=== PATIENT | male | born 1965 | race African-American/Black ===

== ENCOUNTER 2017-11-21 12:02 | Emergency (ER) | payer MEDICAID ==
[~2017-11-21] VITALS: Ht 180.3 cm; Wt 110.0 kg
[~2017-11-21 12:02] MED LIST: AMOXICILLIN/CLAVULAN; BENAZEPRIL; FEXO-61; FLUTICASONE SPRAY; METOPROLOL; TRAM50TA
[2017-11-21] MEDS ORDERED: KETOROLAC 60MG/2ML VIAL IM STA (12:15)
[2017-11-21 12:40] LABS: BASOPHILS % 1.1 % (0.0-2.0); EOSINOPHILS % 4.6 % (0.0-5.0); HEMOGLOBIN. 13.3 g/dL (14.0-18.0); LYMPHOCYTES % 32.3 % (20.0-50.0); MEAN CORPUSCULAR VOLUME 83.2 fL (80.0-94.0); MEAN PLATELET VOLUME 9.8 fl (7.4-10.4); MONOCYTES % 9.9 % (2.0-8.0); NEUTROPHILS % 52.1 % (40.0-76.0); PLATELET 173 x1000/uL (130-400); RED BLOOD CELL COUNT 4.93 mill/uL (4.7-6.1); RED CELL DISTRIBUTION WIDTH 14.5 % (11.6-14.6)
[2017-11-21 12:45] LABS: CHLORIDE 112 mEq/L (98-107)
[2017-11-21 12:54] LABS: CREATINE KINASE 378 IU/L (39-308)
[2017-11-21 13:53] LABS: CLARITY URINE CLEAR (CLEAR); COLOR URINE YELLOW (YELLOW); KETONES URINE NEGATIVE (NEGATIVE); LEUKOCYTE ESTERASE URINE NEGATIVE (NEGATIVE); NITRITE URINE NEGATIVE (NEGATIVE); OCCULT BLOOD URINE NEGATIVE (NEGATIVE); PH URINE 6.5 (4.5-8.0); PROTEIN URINE NEGATIVE (NEGATIVE); SPECIFIC GRAVITY URINE 1.019 (1.005-1.030)
[2017-11-21] MEDS ORDERED: ACETAMINOPHEN WITH CODEINE 300/30MG TABLET PO ONE (14:15)
[2017-11-21] MEDS ORDERED: METHOCARBAMOL 500MG TABLET PO ONE (14:15)
[2017-11-21 16:36] VITALS: BP 126/85
== END 2017-11-21 16:38 | disposition home or self-care (01) ==
LOC: ER 12:21
DX: M54.40 Lumbago with sciatica, unspecified side (principal); M54.16 Radiculopathy, lumbar region; K21.9 Gastro-esophageal reflux disease without esophagitis; I10 Essential (primary) hypertension
CPT/HCPCS: 36415; 72100; 80053; 81003; 82550; 85025; 96372; 99285; J1885

== ENCOUNTER 2017-12-14 12:46 | Emergency (ER) | payer MEDICAID ==
[~2017-12-14] VITALS: Ht 180.3 cm; Wt 110.0 kg
[2017-12-14 13:30] LABS: BASOPHILS % 1.3 % (0.0-2.0); EOSINOPHILS % 4.7 % (0.0-5.0); HEMATOCRIT. 38.3 % (42.0-52.0); HEMOGLOBIN. 12.7 g/dL (14.0-18.0); LYMPHOCYTES % 34.4 % (20.0-50.0); MEAN CORPUSCULAR HEMOGLOBIN 27.6 pg (28.0-32.0); MEAN CORPUSCULAR VOLUME 82.9 fL (80.0-94.0); MEAN PLATELET VOLUME 9.9 fl (7.4-10.4); MONOCYTES % 10.8 % (2.0-8.0); NEUTROPHILS % 48.8 % (40.0-76.0); PLATELET 180 x1000/uL (130-400); RED BLOOD CELL COUNT 4.62 mill/uL (4.7-6.1); RED CELL DISTRIBUTION WIDTH 14.4 % (11.6-14.6)
[2017-12-14 13:37] LABS: INR 1.1; PROTHROMBIN TIME 11.4 sec (9.4-11.6)
[2017-12-14 13:38] LABS: CHLORIDE 110 mEq/L (98-107)
[2017-12-14 14:01] LABS: CLARITY URINE CLEAR (CLEAR); COLOR URINE YELLOW (YELLOW); KETONES URINE TRACE (NEGATIVE); LEUKOCYTE ESTERASE URINE NEGATIVE (NEGATIVE); NITRITE URINE NEGATIVE (NEGATIVE); OCCULT BLOOD URINE NEGATIVE (NEGATIVE); PH URINE 5.5 (4.5-8.0); PROTEIN URINE NEGATIVE (NEGATIVE)
[2017-12-14 18:35] LABS: *BARBITURATES SCREEN URINE NEGATIVE (NEGATIVE); *BENZODIAZEPINES SCREEN URINE NEGATIVE (NEGATIVE); *COCAINE SCREEN URINE NEGATIVE (NEGATIVE)
[2017-12-14 18:36] LABS: CANNABINOID URINE SCREEN NEGATIVE (NEGATIVE); METHADONE URINE SCREEN NEGATIVE (NEGATIVE); OPIATES URINE SCREEN PRESUMTIVE POSITIVE (NEGATIVE); PHENCYCLIDINE URINE SCREEN NEGATIVE (NEGATIVE)
[2017-12-14 18:38] LABS: *AMPHETAMINES SCREEN URINE NEGATIVE (NEGATIVE)
[2017-12-14 21:44] VITALS: BP 124/56
== END 2017-12-14 21:46 | disposition home or self-care (01) ==
LOC: ER 13:20
DX: R16.0 Hepatomegaly, not elsewhere classified (principal); E87.8 Other disorders of electrolyte and fluid balance, not elsewhere classified; D72.821 Monocytosis (symptomatic); E86.0 Dehydration; E83.51 Hypocalcemia; D50.9 Iron deficiency anemia, unspecified; E78.5 Hyperlipidemia, unspecified; R82.4 Acetonuria; M54.42 Lumbago with sciatica, left side; M54.41 Lumbago with sciatica, right side; K21.9 Gastro-esophageal reflux disease without esophagitis; I10 Essential (primary) hypertension; Z98.890 Other specified postprocedural states
CPT/HCPCS: 36415; 76705; 80053; 80305; 81003; 83036; 83690; 85025; 85610; 99285

== ENCOUNTER 2021-07-01 15:10 | Inpatient (IN) | payer MEDICAID ==
[~2021-07-01] VITALS: Ht 180.3 cm; Wt 102.7 kg
[2021-07-01] MEDS ORDERED: MECLIZINE 25MG TABLET PO ONE (15:45)
[2021-07-01 15:53] LABS: BASOPHILS % 0.8 % (0.0-2.0); HEMATOCRIT. 42.3 % (42.0-52.0); HEMOGLOBIN. 13.5 g/dL (14.0-18.0); LYMPHOCYTES % 18.2 % (20.0-50.0); MEAN CORPUSCULAR HEMOGLOBIN 26.9 pg (28.0-32.0); MEAN CORPUSCULAR VOLUME 84.5 fL (80.0-94.0); MEAN PLATELET VOLUME 10.2 fl (7.4-10.4); MONOCYTES % 11.1 % (2.0-8.0); NEUTROPHILS % 66.9 % (40.0-76.0); PLATELET 151 x1000/uL (130-400); RED CELL DISTRIBUTION WIDTH 14.5 % (11.6-14.6)
[2021-07-01 15:55] LABS: CHLORIDE 108 mEq/L (98-107)
[2021-07-01] MEDS ORDERED: ASPIRIN 325MG EC TABLET PO ONE (17:45)
[2021-07-01 23:00] VITALS: BP 170/103
[2021-07-02] MEDS ORDERED: CLONIDINE 0.1MG TABLET PO PRN (00:15)
[2021-07-02] MEDS ORDERED: LORAZEPAM 0.5MG TABLET PO PRN (00:15)
[2021-07-02] MEDS ORDERED: IPRATROPIUM/ALBUTEROL 0.5-3(2.5)MG/3ML NEB NEB PRN (00:15)
[2021-07-02] MEDS ORDERED: GUAIFENESIN 200MG/10ML SUGAR FREE UDC PO PRN (00:15)
[2021-07-02] MEDS ORDERED: MAGNESIUM/ALUMINUM HYDROXIDE/SIMETHICONE 30ML UDC PO PRN (00:15)
[2021-07-02] MEDS ORDERED: HYDROCODONE/ACETAMINOPHEN 5/325MG TABLET PO PRN (00:15)
[2021-07-02] MEDS ORDERED: DOCUSATE SODIUM 100MG CAPSULE PO PRN (00:15)
[2021-07-02] MEDS ORDERED: ACETAMINOPHEN 325MG TABLET PO PRN (00:15)
[2021-07-02] MEDS ORDERED: ONDANSETRON HCL 4MG/2ML INJ IV PRN (00:15)
[2021-07-02] MEDS ORDERED: NALOXONE HCL 0.4MG/ML VIAL IV PRN (00:30)
[2021-07-02] MEDS ORDERED: BENA40TA9 PO (00:50)
[2021-07-02] MEDS ORDERED: OMEP20CA14 PO (00:50)
[2021-07-02] MEDS ORDERED: TAMS-11 PO (00:50)
[2021-07-02] MEDS ORDERED: METO-385 PO (00:50)
[2021-07-02] MEDS ORDERED: ASPI-1406 PO (00:58)
[2021-07-02] MEDS ORDERED: METOPROLOL SUCCINATE 50MG ER TABLET PO SCH (01:00)
[2021-07-02] MEDS ORDERED: METO-539 PO (01:03)
[2021-07-02] MEDS ORDERED: METOPROLOL TARTRATE 50MG TABLET PO SCH (01:30)
[2021-07-02 04:00] VITALS: BP 115/85
[2021-07-02 07:05] LABS: HEMATOCRIT. 39.5 % (42.0-52.0); HEMOGLOBIN. 13.2 g/dL (14.0-18.0); MEAN CORPUSCULAR HEMOGLOBIN 28.5 pg (28.0-32.0); MEAN CORPUSCULAR VOLUME 85.2 fL (80.0-94.0); MEAN PLATELET VOLUME 10.8 fl (7.4-10.4); PLATELET 139 x1000/uL (130-400); RED BLOOD CELL COUNT 4.64 mill/uL (4.7-6.1); RED CELL DISTRIBUTION WIDTH 14.2 % (11.6-14.6)
[2021-07-02] MEDS ORDERED: OMEPRAZOLE 20MG CAPSULE EXTENDED RELEASE PO SCH (07:10)
[2021-07-02 07:14] LABS: CHLORIDE 111 mEq/L (98-107)
[2021-07-02 07:23] LABS: LDL CHOLESTEROL 62 mg/dL (5-100)
[2021-07-02 07:25] LABS: CREATINE KINASE 230 IU/L (39-308); HDL CHOLESTEROL 46 mg/dL (40-59)
[2021-07-02 07:27] LABS: CREATINE KINASE MB FRACTION 3.5 ng/mL (0.5-3.6)
[2021-07-02 08:00] VITALS: BP 165/101
[2021-07-02] MEDS ORDERED: ENOXAPARIN 30MG/0.3ML SYR SUBCUT SCH (09:00)
[2021-07-02] MEDS ORDERED: TAMSULOSIN HCL 0.4MG SR CAPSULE PO SCH (09:00)
[2021-07-02] MEDS ORDERED: ASPIRIN 81MG EC TABLET PO SCH ×2 (09:00→13:30)
[2021-07-02 12:00] VITALS: BP 132/86
[2021-07-02] MEDS ORDERED: BENAZEPRIL 10MG TABLET PO SCH (13:30)
[2021-07-02 15:56] LABS: CLARITY URINE CLEAR (CLEAR); COLOR URINE YELLOW (YELLOW); KETONES URINE NEGATIVE (NEGATIVE); LEUKOCYTE ESTERASE URINE NEGATIVE (NEGATIVE); NITRITE URINE NEGATIVE (NEGATIVE); OCCULT BLOOD URINE NEGATIVE (NEGATIVE); PH URINE 5.5 (4.5-8.0); PROTEIN URINE NEGATIVE (NEGATIVE); SPECIFIC GRAVITY URINE 1.016 (1.005-1.030)
[2021-07-02 16:00] VITALS: BP 147/99
[2021-07-02] MEDS ORDERED: MECL-159 MT (16:12)
[2021-07-02 16:19] LABS: *AMPHETAMINES SCREEN URINE NEGATIVE (NEGATIVE); *BARBITURATES SCREEN URINE NEGATIVE (NEGATIVE); *BENZODIAZEPINES SCREEN URINE NEGATIVE (NEGATIVE); *COCAINE SCREEN URINE NEGATIVE (NEGATIVE); OPIATES URINE SCREEN NEGATIVE (NEGATIVE)
[2021-07-02 16:20] LABS: CANNABINOID URINE SCREEN NEGATIVE (NEGATIVE); PHENCYCLIDINE URINE SCREEN NEGATIVE (NEGATIVE)
[2021-07-02 16:21] LABS: METHADONE URINE SCREEN NEGATIVE (NEGATIVE)
[2021-07-02 16:41] LABS: PLATELET ESTIMATE NORMAL
[2021-07-02 16:58] VITALS: BP 147/97
[2021-07-02 17:00] LABS: CREATINE KINASE 216 IU/L (39-308)
[2021-07-02 17:02] LABS: CREATINE KINASE MB FRACTION 3.4 ng/mL (0.5-3.6)
== END 2021-07-02 18:40 | disposition home or self-care (01) | DRG 111 ==
LOC: ER 15:10 → ENRESERV 21:59 → 8WST 23:02
PROVIDERS: ADMIT Internal Medicine; ATTEND Internal Medicine
DX: H81.10 Benign paroxysmal vertigo, unspecified ear (principal); I69.351 Hemiplegia and hemiparesis following cerebral infarction affecting right dominant side; D64.9 Anemia, unspecified; K21.9 Gastro-esophageal reflux disease without esophagitis; E78.5 Hyperlipidemia, unspecified; I10 Essential (primary) hypertension; J98.11 Atelectasis; Z20.822 Contact with and (suspected) exposure to COVID-19; D72.821 Monocytosis (symptomatic); Z97.0 Presence of artificial eye
CPT/HCPCS: 36415; 70551; 71045; 80048; 80053; 80061; 80305; 81003; 82550; 82553; 83880; 84443; 84484; 85025; 87426; 93005; 93306; 97162; 99285; J1650; J8597

== ENCOUNTER 2022-04-17 22:13 | Inpatient (IN) | payer MEDICAID ==
[~2022-04-17] VITALS: Ht 182.9 cm; Wt 99.8 kg
[~2022-04-17 22:13] MED LIST changes: -AMOXICILLIN/CLAVULAN; +ASPI-1406 PO; +ATOR40TA70 MT; +BENA40TA91 PO; -BENAZEPRIL; -FEXO-61; -FLUTICASONE SPRAY; +MECL-159 MT; +METO-539 PO; -METOPROLOL; +OMEP20CA14 PO; +TAMS-11 PO; -TRAM50TA
[2022-04-17 22:30] VITALS: BP 136/90
[2022-04-18] MEDS ORDERED: ACETAMINOPHEN 650MG/20.3ML UDC PO PRN (00:15)
[2022-04-18] MEDS ORDERED: ONDANSETRON HCL 4MG/2ML INJ IV PRN (00:15)
[2022-04-18] MEDS ORDERED: ACETAMINOPHEN 325MG TABLET PO PRN (00:45)
[2022-04-18 06:20] LABS: BASOPHILS % 0.9 % (0.0-2.0); EOSINOPHILS % 7.3 % (0.0-5.0); HEMATOCRIT. 39.6 % (42.0-52.0); HEMOGLOBIN. 12.9 g/dL (14.0-18.0); LYMPHOCYTES % 23.7 % (20.0-50.0); MEAN CORPUSCULAR HEMOGLOBIN 27.9 pg (28.0-32.0); MEAN CORPUSCULAR VOLUME 85.6 fL (80.0-94.0); MEAN PLATELET VOLUME 10.9 fl (7.4-10.4); MONOCYTES % 14.5 % (2.0-8.0); NEUTROPHILS % 53.6 % (40.0-76.0); PLATELET 163 x1000/uL (130-400); RED BLOOD CELL COUNT 4.63 mill/uL (4.7-6.1); RED CELL DISTRIBUTION WIDTH 14.2 % (11.6-14.6)
[2022-04-18] MEDS: HYDRALAZINE HCL 50MG TABLET PO SCH ×3 (06:54→21:57)
[2022-04-18] MEDS: ENOXAPARIN 30MG/0.3ML SYR SUBCUT SCH ×2 (06:55→17:16)
[2022-04-18 07:25] LABS: CHLORIDE 107 mEq/L (98-107)
[2022-04-18 08:00] VITALS: BP 128/88
[2022-04-18] MEDS: BUTALBITAL/ACETAMINOPHEN/CAFFEINE 50/325/40MG TABLET PO PRN ×2 (08:47→15:14)
[2022-04-18] MEDS: FAMOTIDINE 20MG TABLET PO SCH ×2 (08:48→21:57)
[2022-04-18] MEDS: CLOPIDOGREL 75MG TABLET PO SCH (08:48)
[2022-04-18] MEDS: ASPIRIN 81MG EC TABLET PO SCH (08:48)
[2022-04-18] MEDS: ISOSORBIDE MONONITRATE 30MG TABLET SR 24HR PO SCH (08:49)
[2022-04-18 20:00] VITALS: BP 122/78
[2022-04-18] MEDS: ATORVASTATIN CALCIUM 40MG TABLET PO SCH (21:56)
[2022-04-18] MEDS: TAMSULOSIN HCL 0.4MG SR CAPSULE PO SCH (21:57)
[2022-04-19] MEDS: ENOXAPARIN 30MG/0.3ML SYR SUBCUT SCH ×2 (05:30→17:47)
[2022-04-19] MEDS: HYDRALAZINE HCL 50MG TABLET PO SCH ×3 (05:31→22:07)
[2022-04-19 08:00] VITALS: BP 135/93
[2022-04-19] MEDS: ASPIRIN 81MG EC TABLET PO SCH (08:13)
[2022-04-19] MEDS: CLOPIDOGREL 75MG TABLET PO SCH (08:13)
[2022-04-19] MEDS: FAMOTIDINE 20MG TABLET PO SCH ×2 (08:13→19:59)
[2022-04-19] MEDS: ISOSORBIDE MONONITRATE 30MG TABLET SR 24HR PO SCH (08:14)
[2022-04-19] MEDS: ACETAMINOPHEN 325MG TABLET PO PRN (08:16)
[2022-04-19] MEDS ORDERED: NALOXONE HCL 0.4MG/ML VIAL IV PRN (12:30)
[2022-04-19] MEDS: HYDROCODONE/ACETAMINOPHEN 5/325MG TABLET PO PRN ×2 (13:02→20:01)
[2022-04-19] MEDS: TAMSULOSIN HCL 0.4MG SR CAPSULE PO SCH (19:59)
[2022-04-19] MEDS: ATORVASTATIN CALCIUM 40MG TABLET PO SCH (19:59)
[2022-04-19 20:00] VITALS: BP 117/74
[2022-04-20] MEDS: ENOXAPARIN 30MG/0.3ML SYR SUBCUT SCH ×2 (06:00→17:26)
[2022-04-20] MEDS: HYDRALAZINE HCL 50MG TABLET PO SCH ×3 (06:01→21:57)
[2022-04-20 08:00] VITALS: BP 149/98
[2022-04-20] MEDS: ISOSORBIDE MONONITRATE 30MG TABLET SR 24HR PO SCH (08:22)
[2022-04-20] MEDS: HYDROCODONE/ACETAMINOPHEN 5/325MG TABLET PO PRN ×2 (08:23→16:26)
[2022-04-20] MEDS: ASPIRIN 81MG EC TABLET PO SCH (08:23)
[2022-04-20] MEDS: FAMOTIDINE 20MG TABLET PO SCH ×2 (08:23→21:49)
[2022-04-20] MEDS: CLOPIDOGREL 75MG TABLET PO SCH (08:23)
[2022-04-20 20:00] VITALS: BP 108/72
[2022-04-20] MEDS: TAMSULOSIN HCL 0.4MG SR CAPSULE PO SCH (21:49)
[2022-04-20] MEDS: ATORVASTATIN CALCIUM 40MG TABLET PO SCH (21:49)
[2022-04-21] MEDS: HYDROCODONE/ACETAMINOPHEN 5/325MG TABLET PO PRN ×3 (01:03→23:30)
[2022-04-21 06:01] LABS: HEMATOCRIT 37.8 % (42.0-52.0); HEMOGLOBIN 12.3 g/dL (14.0-18.0); MEAN CORPUSCULAR HEMOGLOBIN 27.7 pg (28.0-32.0); MEAN CORPUSCULAR VOLUME 85.1 fL (80.0-94.0); PLATELET 187 x1000/uL (130-400); RED BLOOD CELL COUNT 4.44 mill/uL (4.7-6.1); RED CELL DISTRIBUTION WIDTH 14.2 % (11.6-14.6)
[2022-04-21 06:16] LABS: CHLORIDE 108 mEq/L (98-107)
[2022-04-21] MEDS: HYDRALAZINE HCL 50MG TABLET PO SCH ×3 (06:40→20:32)
[2022-04-21] MEDS: ENOXAPARIN 30MG/0.3ML SYR SUBCUT SCH ×2 (06:40→17:09)
[2022-04-21 08:00] VITALS: BP 147/96
[2022-04-21] MEDS: FAMOTIDINE 20MG TABLET PO SCH ×2 (08:32→20:30)
[2022-04-21] MEDS: ASPIRIN 81MG EC TABLET PO SCH (08:32)
[2022-04-21] MEDS: CLOPIDOGREL 75MG TABLET PO SCH (08:32)
[2022-04-21] MEDS: ISOSORBIDE MONONITRATE 30MG TABLET SR 24HR PO SCH (08:33)
[2022-04-21 20:00] VITALS: BP 123/74
[2022-04-21] MEDS: ATORVASTATIN CALCIUM 40MG TABLET PO SCH (20:30)
[2022-04-21] MEDS: TAMSULOSIN HCL 0.4MG SR CAPSULE PO SCH (20:32)
[2022-04-22] MEDS: HYDRALAZINE HCL 50MG TABLET PO SCH ×3 (06:16→21:07)
[2022-04-22] MEDS: ENOXAPARIN 30MG/0.3ML SYR SUBCUT SCH ×2 (06:17→17:37)
[2022-04-22 08:00] VITALS: BP 140/90
[2022-04-22] MEDS: ASPIRIN 81MG EC TABLET PO SCH (10:01)
[2022-04-22] MEDS: ISOSORBIDE MONONITRATE 30MG TABLET SR 24HR PO SCH (10:01)
[2022-04-22] MEDS: FAMOTIDINE 20MG TABLET PO SCH ×2 (10:01→21:00)
[2022-04-22] MEDS: CLOPIDOGREL 75MG TABLET PO SCH (10:01)
[2022-04-22] MEDS: HYDROCODONE/ACETAMINOPHEN 5/325MG TABLET PO PRN (15:50)
[2022-04-22 20:00] VITALS: BP 125/82
[2022-04-22] MEDS: TAMSULOSIN HCL 0.4MG SR CAPSULE PO SCH (20:59)
[2022-04-22] MEDS: ATORVASTATIN CALCIUM 40MG TABLET PO SCH (21:00)
[2022-04-22] MEDS: ACETAMINOPHEN 325MG TABLET PO PRN (21:00)
[2022-04-23] MEDS: ENOXAPARIN 30MG/0.3ML SYR SUBCUT SCH ×2 (06:05→17:19)
[2022-04-23] MEDS: HYDRALAZINE HCL 50MG TABLET PO SCH ×3 (06:06→20:24)
[2022-04-23 08:00] VITALS: BP 133/76
[2022-04-23] MEDS: CLOPIDOGREL 75MG TABLET PO SCH (08:27)
[2022-04-23] MEDS: FAMOTIDINE 20MG TABLET PO SCH ×2 (08:27→20:21)
[2022-04-23] MEDS: ASPIRIN 81MG EC TABLET PO SCH (08:27)
[2022-04-23] MEDS: ISOSORBIDE MONONITRATE 30MG TABLET SR 24HR PO SCH (08:27)
[2022-04-23] MEDS: HYDROCODONE/ACETAMINOPHEN 5/325MG TABLET PO PRN ×2 (12:01→20:23)
[2022-04-23 20:00] VITALS: BP 122/80
[2022-04-23] MEDS: ATORVASTATIN CALCIUM 40MG TABLET PO SCH (20:20)
[2022-04-23] MEDS: TAMSULOSIN HCL 0.4MG SR CAPSULE PO SCH (20:21)
[2022-04-24] MEDS: ENOXAPARIN 30MG/0.3ML SYR SUBCUT SCH ×2 (05:43→17:00)
[2022-04-24] MEDS: HYDRALAZINE HCL 50MG TABLET PO SCH ×3 (05:43→20:51)
[2022-04-24 07:55] VITALS: BP 126/75
[2022-04-24] MEDS: FAMOTIDINE 20MG TABLET PO SCH ×2 (09:18→20:51)
[2022-04-24] MEDS: CLOPIDOGREL 75MG TABLET PO SCH (09:19)
[2022-04-24] MEDS: ASPIRIN 81MG EC TABLET PO SCH (09:19)
[2022-04-24] MEDS: ISOSORBIDE MONONITRATE 30MG TABLET SR 24HR PO SCH (09:20)
[2022-04-24] MEDS: ATORVASTATIN CALCIUM 40MG TABLET PO SCH (20:50)
[2022-04-24] MEDS: ACETAMINOPHEN 325MG TABLET PO PRN (20:50)
[2022-04-24] MEDS: TAMSULOSIN HCL 0.4MG SR CAPSULE PO SCH (20:50)
[2022-04-24] MEDS ORDERED: HYDROCODONE/ACETAMINOPHEN 5/325MG TABLET PO PRN (21:30)
[2022-04-25] MEDS: HYDRALAZINE HCL 50MG TABLET PO SCH ×3 (06:17→22:00)
[2022-04-25] MEDS: ENOXAPARIN 30MG/0.3ML SYR SUBCUT SCH ×2 (06:18→17:52)
[2022-04-25 08:00] VITALS: BP 138/91
[2022-04-25] MEDS: CLOPIDOGREL 75MG TABLET PO SCH (09:14)
[2022-04-25] MEDS: ASPIRIN 81MG EC TABLET PO SCH (09:14)
[2022-04-25] MEDS: FAMOTIDINE 20MG TABLET PO SCH ×2 (09:14→20:52)
[2022-04-25] MEDS: ISOSORBIDE MONONITRATE 30MG TABLET SR 24HR PO SCH (09:14)
[2022-04-25] MEDS: HYDROCODONE/ACETAMINOPHEN 5/325MG TABLET PO PRN (13:44)
[2022-04-25 20:00] VITALS: BP 126/82
[2022-04-25] MEDS: ATORVASTATIN CALCIUM 40MG TABLET PO SCH (20:52)
[2022-04-25] MEDS: TAMSULOSIN HCL 0.4MG SR CAPSULE PO SCH (20:53)
[2022-04-25] MEDS: BUTALBITAL/ACETAMINOPHEN/CAFFEINE 50/325/40MG TABLET PO PRN (20:54)
[2022-04-25 21:00] VITALS: BP 128/80
[2022-04-26] MEDS: ENOXAPARIN 30MG/0.3ML SYR SUBCUT SCH ×2 (06:09→17:04)
[2022-04-26] MEDS: HYDRALAZINE HCL 50MG TABLET PO SCH ×3 (06:10→21:11)
[2022-04-26 08:00] VITALS: BP 149/88
[2022-04-26] MEDS: ASPIRIN 81MG EC TABLET PO SCH (08:28)
[2022-04-26] MEDS: CLOPIDOGREL 75MG TABLET PO SCH (08:28)
[2022-04-26] MEDS: ISOSORBIDE MONONITRATE 30MG TABLET SR 24HR PO SCH (08:28)
[2022-04-26] MEDS: FAMOTIDINE 20MG TABLET PO SCH ×2 (08:28→20:29)
[2022-04-26] MEDS: BUTALBITAL/ACETAMINOPHEN/CAFFEINE 50/325/40MG TABLET PO PRN (16:44)
[2022-04-26 20:00] VITALS: BP 118/82
[2022-04-26] MEDS: TAMSULOSIN HCL 0.4MG SR CAPSULE PO SCH (20:29)
[2022-04-26] MEDS: ATORVASTATIN CALCIUM 40MG TABLET PO SCH (20:30)
[2022-04-27 06:00] VITALS: BP 118/82
[2022-04-27] MEDS: HYDRALAZINE HCL 50MG TABLET PO SCH ×3 (06:06→20:39)
[2022-04-27] MEDS: ENOXAPARIN 30MG/0.3ML SYR SUBCUT SCH ×2 (06:06→17:18)
[2022-04-27] MEDS: ASPIRIN 81MG EC TABLET PO SCH (09:35)
[2022-04-27] MEDS: FAMOTIDINE 20MG TABLET PO SCH ×2 (09:35→20:36)
[2022-04-27] MEDS: CLOPIDOGREL 75MG TABLET PO SCH (09:35)
[2022-04-27] MEDS: ISOSORBIDE MONONITRATE 30MG TABLET SR 24HR PO SCH (09:41)
[2022-04-27] MEDS: ACETAMINOPHEN 325MG TABLET PO PRN (14:15)
[2022-04-27 20:00] VITALS: BP 140/102
[2022-04-27] MEDS: BUTALBITAL/ACETAMINOPHEN/CAFFEINE 50/325/40MG TABLET PO PRN (20:35)
[2022-04-27] MEDS: TAMSULOSIN HCL 0.4MG SR CAPSULE PO SCH (20:37)
[2022-04-27] MEDS: ATORVASTATIN CALCIUM 40MG TABLET PO SCH (20:38)
[2022-04-28] MEDS: HYDRALAZINE HCL 50MG TABLET PO SCH ×3 (07:03→21:43)
[2022-04-28] MEDS: ENOXAPARIN 30MG/0.3ML SYR SUBCUT SCH ×2 (07:03→17:29)
[2022-04-28 08:00] VITALS: BP 142/74
[2022-04-28] MEDS: CLOPIDOGREL 75MG TABLET PO SCH (09:11)
[2022-04-28] MEDS: ASPIRIN 81MG EC TABLET PO SCH (09:12)
[2022-04-28] MEDS: ISOSORBIDE MONONITRATE 30MG TABLET SR 24HR PO SCH (09:12)
[2022-04-28] MEDS: FAMOTIDINE 20MG TABLET PO SCH ×2 (09:12→21:42)
[2022-04-28] MEDS: BUTALBITAL/ACETAMINOPHEN/CAFFEINE 50/325/40MG TABLET PO PRN ×2 (12:09→20:27)
[2022-04-28 20:18] VITALS: BP 130/87
[2022-04-28] MEDS: ATORVASTATIN CALCIUM 40MG TABLET PO SCH (21:42)
[2022-04-28] MEDS: TAMSULOSIN HCL 0.4MG SR CAPSULE PO SCH (21:42)
[2022-04-29] MEDS: ENOXAPARIN 30MG/0.3ML SYR SUBCUT SCH (06:03)
[2022-04-29] MEDS: HYDRALAZINE HCL 50MG TABLET PO SCH (06:04)
[2022-04-29 08:00] VITALS: BP 120/77
[2022-04-29] MEDS: ISOSORBIDE MONONITRATE 30MG TABLET SR 24HR PO SCH (08:43)
[2022-04-29] MEDS: FAMOTIDINE 20MG TABLET PO SCH (08:44)
[2022-04-29] MEDS: ASPIRIN 81MG EC TABLET PO SCH (08:44)
[2022-04-29] MEDS: CLOPIDOGREL 75MG TABLET PO SCH (08:44)
[2022-04-29] MEDS ORDERED: ISOS30TA91 PO (10:51)
[2022-04-29] MEDS ORDERED: CLOP75TA15 PO (10:51)
[2022-04-29] MEDS ORDERED: FAMO20TA8 PO ×2 (10:51→10:53)
[2022-04-29] MEDS ORDERED: TAMS-11 PO (10:51)
[2022-04-29] MEDS ORDERED: HYDR-4135 PO (10:51)
[2022-04-29] MEDS: HYDROCODONE/ACETAMINOPHEN 5/325MG TABLET PO PRN (11:20)
[2022-04-29 11:32] VITALS: BP 120/77
== END 2022-04-29 13:20 | disposition home health service (06) | DRG 45 ==
PROVIDERS: ADMIT Psychiatry & Neurology Neurology; ATTEND Hospitalist
DX: I63.541 Cerebral infarction due to unspecified occlusion or stenosis of right cerebellar artery (principal); I69.351 Hemiplegia and hemiparesis following cerebral infarction affecting right dominant side; I10 Essential (primary) hypertension; M19.90 Unspecified osteoarthritis, unspecified site; R47.1 Dysarthria and anarthria; R73.9 Hyperglycemia, unspecified; M75.51 Bursitis of right shoulder; M75.101 Unspecified rotator cuff tear or rupture of right shoulder, not specified as traumatic; R00.1 Bradycardia, unspecified; Z79.82 Long term (current) use of aspirin; Z79.899 Other long term (current) drug therapy; Z87.891 Personal history of nicotine dependence; Z79.02 Long term (current) use of antithrombotics/antiplatelets
CPT/HCPCS: 36415; 73030; 80053; 80061; 85025; 85027; 92523; 92610; 93970; 97110; 97112; 97116; 97150; 97162; 97166; 97530; 97535; 97760; A4565; J1650; 97763-GO

== ENCOUNTER 2022-06-30 22:45 | Emergency (ER) | payer MEDICAID ==
[~2022-06-30] VITALS: Ht 180.3 cm; Wt 103.0 kg
[~2022-06-30 22:45] MED LIST changes: +CLOP75TA15 PO; +FAMO20TA8 PO; +HYDR-4135 PO; +ISOS30TA91 PO
[2022-06-30] MEDS ORDERED: MORPHINE SULFATE 4 MG/ML CPJ (NOT FOR IM USE) IV ONE (23:45)
[2022-07-01] MEDS ORDERED: ONDANSETRON HCL 4MG/2ML INJ IV ONE
[2022-07-01 00:46] LABS: HEMATOCRIT. 37.9 % (42.0-52.0); HEMOGLOBIN. 12.5 g/dL (14.0-18.0); MEAN CORPUSCULAR HEMOGLOBIN 27.9 pg (28.0-32.0); MEAN CORPUSCULAR VOLUME 84.9 fL (80.0-94.0); MEAN PLATELET VOLUME 10.5 fl (7.4-10.4); MONOCYTES % 9.6 % (2.0-8.0); NEUTROPHILS % 70.4 % (40.0-76.0); PLATELET 149 x1000/uL (130-400); RED BLOOD CELL COUNT 4.47 mill/uL (4.7-6.1); RED CELL DISTRIBUTION WIDTH 15.2 % (11.6-14.6)
[2022-07-01] MEDS ORDERED: MORPHINE SULFATE 4 MG/ML CPJ (NOT FOR IM USE) IV ONE ×2 (01:15→05:00)
[2022-07-01 01:17] LABS: CHLORIDE 113 mEq/L (98-107)
[2022-07-01 02:18] LABS: *AMPHETAMINES SCREEN URINE NEGATIVE (NEGATIVE); *BARBITURATES SCREEN URINE NEGATIVE (NEGATIVE); *BENZODIAZEPINES SCREEN URINE NEGATIVE (NEGATIVE); *COCAINE SCREEN URINE NEGATIVE (NEGATIVE); CANNABINOID URINE SCREEN NEGATIVE (NEGATIVE); METHADONE URINE SCREEN NEGATIVE (NEGATIVE); OPIATES URINE SCREEN NEGATIVE (NEGATIVE); PHENCYCLIDINE URINE SCREEN NEGATIVE (NEGATIVE)
[2022-07-01] MEDS ORDERED: HYDR-4001 MT (04:58)
[2022-07-01] MEDS ORDERED: LIDO700A15 TP (04:58)
[2022-07-01 05:09] VITALS: BP 172/100
== END 2022-07-01 07:31 | disposition home or self-care (01) ==
LOC: ER 22:45
DX: S42.351A Displaced comminuted fracture of shaft of humerus, right arm, initial encounter for closed fracture (principal); K21.9 Gastro-esophageal reflux disease without esophagitis; I10 Essential (primary) hypertension; W01.198A Fall on same level from slipping, tripping and stumbling with subsequent striking against other object, initial encounter; Y93.9 Activity, unspecified; Y92.9 Unspecified place or not applicable; I69.351 Hemiplegia and hemiparesis following cerebral infarction affecting right dominant side
CPT/HCPCS: 36415; 70450; 73030; 73200; 80053; 80305; 85025; 96374; 96375; 96376; 99285; J2270; J2405; A4565